=== PATIENT | male | born 1960 | race Caucasian/White ===

== ENCOUNTER 2018-05-20 12:59 | Day surgery (SDC) | payer OTHER ==
[~2018-05-20] VITALS: Ht 180.3 cm; Wt 105.4 kg
[~2018-05-20 12:59] MED LIST: HYDACE5 PO; OMEPRAZOLE MAGN20 MG PO
== END 2018-05-20 14:50 | disposition home or self-care (01) ==
LOC: ORSCSDS 12:59
PROVIDERS: Surgery
PROC: 0DJD8ZZ Inspection of Lower Intestinal Tract, Via Natural or Artificial Opening Endoscopic (ICD-10-PCS; principal; 2018-05-20 14:15)
DX: Z12.11 Encounter for screening for malignant neoplasm of colon (principal); K57.30 Diverticulosis of large intestine without perforation or abscess without bleeding; K21.9 Gastro-esophageal reflux disease without esophagitis; E66.9 Obesity, unspecified; Z68.33 Body mass index [BMI] 33.0-33.9, adult; Z79.899 Other long term (current) drug therapy
CPT/HCPCS: J7120

== ENCOUNTER 2024-01-04 09:12 | Emergency (ER) | payer OTHER, MEDICARE ==
[~2024-01-04] VITALS: Ht 182.9 cm; Wt 106.6 kg
[2024-01-04 10:05] VITALS: BP 153/87
[2024-01-04] MEDS ORDERED: Ibuprofen 600 MG Tab PO ONE (11:05)
[2024-01-04] MEDS ORDERED: Robaxin750 MG PO (12:14)
== END 2024-01-04 12:30 | disposition home or self-care (01) ==
LOC: ER 09:12
DX: M54.2 Cervicalgia (principal); M54.6 Pain in thoracic spine; Z88.0 Allergy status to penicillin; V89.2XXA Person injured in unspecified motor-vehicle accident, traffic, initial encounter
CPT/HCPCS: 72040; 72070; 99283-25; A9270